=== PATIENT | female | born 1985 | race Caucasian/White ===

== ENCOUNTER 2020-02-15 17:34 | Emergency (ER) | payer MEDICAID ==
[2020-02-15 17:53] VITALS: BP 122/76
--- NOTE | 2020-02-15 19:39 | ED Physician Documentation ---
PD HPI BACK PAIN - Stated complaint Stated Complaint: BACK PX - Chief complaint Chief Complaint: Back Pain - History obtained from History obtained from: Patient - History of Present Illness Timing - onset: How many days ago (onset and worsening over past 2-3 days of left low back pain, unresponsive to low back ROM exercises, ice, and NSAIDs. Has had similar episodically in the past, without chronic pain. No noted mechanism for the pain onset.) Timing - duration: Days (2-3) Timing - details: Gradual onset, Waxing and waning Location: Lower, Left Quality: Pain, Aching Associated symptoms: No: Fever, Weakness, Numbness, Unable to urinate Improves with: Rest Worsened by: Movement, Twisting, Palpation Contributing factors: No: Lifting, Twisting, Trauma Similar symptoms before: Diagnosis (low back pain episodes in the past, with prior PT in the past. No chronic pain.) Review of Systems Constitutional: denies: Fever, Chills Nose: denies: Rhinorrhea / runny nose, Congestion Throat: denies: Sore throat Respiratory: denies: Cough GI: denies: Abdominal Pain, Nausea, Vomiting, Diarrhea : denies: Dysuria, Frequency Skin: denies: Rash, Lesions Neurologic: denies: Focal weakness, Numbness PD PAST MEDICAL HISTORY - Past Medical History Past Medical History: No - Past Surgical History Past Surgical History: Yes General: Cholecystectomy - Present Medications Home Medications: Ambulatory Orders Medication Instructions Recorded Confirmed Ibuprofen [Motrin] 600 mg PO TID PRN #25 tab 02/15/20 Oxycodone HCl/Acetaminophen 1 each PO Q6H PRN #14 tablet 02/15/20 [Percocet 5-325 mg Tablet] Tizanidine HCl 4 mg PO TID PRN #25 capsule 02/15/20 dexAMETHasone [Decadron] 4 mg PO DAILY #5 tablet 02/15/20 - Allergies Allergies/Adverse Reactions: Allergies Allergy/AdvReac Type Severity Reaction Status Date / Time acetaminophen [From Vicodin] Allergy Unknown Verified 02/15/20 19:32 hydrocodone [From Vicodin] Allergy Unknown Verified 02/15/20 19:32 - Social History Does the pt smoke?: No Smoking Status: Never smoker PD ED PE NORMAL - Vitals Vital signs reviewed: Yes - General General: Alert and oriented X 3, Well developed/nourished, Other (appears uncomfortable with the back pain. Sitting leaning forward to right to have pressure off the left. ) - Abdomen Abdomen: Soft, Non tender - Back Back: No CVA TTP, No spinal TTP (has tenderness left lumbar muscle focally and also some to the SI area. No rash nor sores. ) - Derm Derm: Normal color, Warm and dry - Extremities Extremities: No edema, No calf tenderness / cord - Neuro Neuro: Alert and oriented X 3, No motor deficit, No sensory deficit, Other (normal knee reflexes) Results - Vitals Vitals: Vital Signs - 24 hr 02/15/20 02/15/20 17:46 21:29 Temperature 36.2 C L Heart Rate 90 88 Respiratory 16 16 Rate Blood Pressure 122/76 O2 Saturation 97 99 Oxygen O2 Source Room air PD MEDICAL DECISION MAKING - ED course Complexity details: considered differential (low back pain without red flags. Locally tender at upper aspect left SI area. Has trigger point in muscles just above the SI. ), d/w patient Departure - Departure Disposition: 01 Home, Self Care Clinical Impression: Low back pain Qualifiers: Chronicity: acute Back pain laterality: left Sciatica presence: without sciatica Qualified Code(s): M54.5 - Low back pain Condition: Stable Record reviewed to determine appropriate education?: Yes Instructions: ED Low Back Pain Injury Follow-Up: Bonilla West MD [Primary Care Provider] - Prescriptions: dexAMETHasone [Decadron] 4 mg PO DAILY #5 tablet Ibuprofen [Motrin] 600 mg PO TID PRN #25 tab PRN Reason: Pain Oxycodone HCl/Acetaminophen [Percocet 5-325 mg Tablet] 1 each PO Q6H PRN #14 tablet PRN Reason: pain Tizanidine HCl 4 mg PO TID PRN #25 capsule PRN Reason: Spasms Comments: Heat and gentle stretching for the low back. Lookup sacroiliac strain exercises on the Internet and emphasize those type stretches more than low back per se. Anti-inflammatory of ibuprofen 3 times a day and add tizanidine muscle relaxant and Tylenol for pain. Add oxycodone if needed for worse pain in the short-term. Also Decadron steroid anti-inflammatory daily for 5 more days. Recheck if not improved well over the next few days and return if worsening. Discharge Date/Time: 02/15/20 21:29
[2020-02-15] MEDS ORDERED: IBUPROFEN 800 MG TABLET PO STA (20:10)
[2020-02-15] MEDS ORDERED: methocarbamoL 500 MG TABLET PO STA (20:10)
[2020-02-15] MEDS ORDERED: TRIAMCINOLONE 40 MG/ML VIAL IM STA (20:10)
[2020-02-15] MEDS ORDERED: oxyCODONE 5 MG TABLET PO STA (20:12)
[2020-02-15] MEDS ORDERED: oxyCODONE/ACET 5/325 Prepack 4 PO STA (21:02)
== END 2020-02-15 21:29 | disposition home or self-care (01) ==
LOC: ED 17:34
DX: M54.5 Low back pain (principal)
CPT/HCPCS: 20552; 99283; 99284; A9270; 96372

== ENCOUNTER 2020-07-29 12:25 | Emergency (ER) | payer MEDICAID ==
[2020-07-29 12:37] VITALS: BP 130/71
== END 2020-07-29 13:44 | disposition left against medical advice (07) ==
LOC: ED 12:25
DX: Z53.21 Procedure and treatment not carried out due to patient leaving prior to being seen by health care provider (principal)

== ENCOUNTER 2020-10-15 13:12 | Emergency (ER) | payer MEDICAID ==
[2020-10-15] MEDS ORDERED: CYCLOBENZAPRINE 10 MG TABLET PO STA (13:29)
--- NOTE | 2020-10-15 13:30 | ED Physician Documentation ---
PD HPI BACK PAIN - Stated complaint Stated Complaint: GLF - BACK PX - Chief complaint Chief Complaint: Back Pain - History obtained from History obtained from: Patient - Additional information Additional information: 35-year-old woman with history of sciatica was coming down her steps and slipped and fell at an angle hitting her back and felt a pop in the back and now has pain and numbness radiating down the left side. Previous radicular/sciatic issues were in the right leg though. No fevers or chills. No saddle anesthesia or incontinence. No possibility of . Review of Systems Constitutional: reports: Reviewed and negative Eyes: reports: Reviewed and negative Ears: reports: Reviewed and negative Nose: reports: Reviewed and negative Throat: reports: Reviewed and negative Cardiac: reports: Reviewed and negative PD PAST MEDICAL HISTORY - Past Medical History Past Medical History: No - Past Surgical History Past Surgical History: Yes General: Cholecystectomy - Present Medications Home Medications: Ambulatory Orders Medication Instructions Recorded Confirmed Cyclobenzaprine [Flexeril] 10 mg PO TID PRN #20 tablet 10/15/20 Venlafaxine HCl [Effexor Xr] 1 tab PO DAILY 10/15/20 10/15/20 lamoTRIgine [Lamictal Xr] 1 tab PO DAILY 10/15/20 10/15/20 predniSONE [Deltasone] 20 mg PO [id number] #21 tab 10/15/20 - Allergies Allergies/Adverse Reactions: Allergies Allergy/AdvReac Type Severity Reaction Status Date / Time acetaminophen [From Vicodin] Allergy Unknown Verified 10/15/20 13:19 hydrocodone [From Vicodin] Allergy Unknown Verified 10/15/20 13:19 - Social History Does the pt smoke?: No Smoking Status: Never smoker Does the pt drink ETOH?: No Does the pt have substance abuse?: No - Immunizations Immunizations are current?: Yes - POLST Patient has POLST: No PD ED PE NORMAL - Vitals Vital signs reviewed: Yes - General General: Alert and oriented X 3, No acute distress - Extremities Extremities: Other (She is some tenderness to the left of the lower lumbar spine. No midline spinal tenderness. Mild numbness in a left L4-L5 d istribution. Diminished left patellar reflex compared to the right. Normal strength throughout the lower extremities.) - Neuro Neuro: Alert and oriented X 3, Normal speech Results - Vitals Vitals: Vital Signs - 24 hr 10/15/20 13:14 Temperature 36.4 C L Heart Rate 122 H Respiratory 18 Rate Blood Pressure 125/58 L O2 Saturation 99 Oxygen O2 Source Room air - Rads (name of study) L spine XR Radiology: EMP read contemporaneously (NAD) Departure - Departure Disposition: Home, Self Care Clinical Impression: Sciatica Qualifiers: Laterality: left Qualified Code(s): M54.32 - Sciatica, left side Condition: Good Record reviewed to determine appropriate education?: Yes Instructions: ED Sciatica Prescriptions: predniSONE [Deltasone] 20 mg PO [id number] #21 tab Cyclobenzaprine [Flexeril] 10 mg PO TID PRN #20 tablet PRN Reason: Spasms Comments: I know in the past physical therapy has not helped, but you should still talk with your doctor about it. Return for new or worsening symptoms. If symptoms are persistent over weeks to months also talk with your doctor about an MRI.
--- NOTE | 2020-10-15 14:13 | XRAY Report ---
PROCEDURE: Lumbar Spine 2 View INDICATIONS: back injury TECHNIQUE: 2 views of the lumbar spine were acquired. COMPARISON: None. FINDINGS: Bones: 5 [id number]-inc-malsnmn vertebrae are present. There may be a minimal scoliosis. No vertebral body compression fractures. No suspicious bony lesions. Soft tissues: Overlying bowel gas pattern is normal. No suspicious soft tissue calcifications. Chol ecystectomy clips. IMPRESSION: No significant osseous abnormality. Reviewed by: Guy Escalona MD on 10/15/2020 2:12 PM [facility] Approved by: Guy Escalona MD on 10/15/2020 2:12 PM [facility] Station ID: [id number]
[2020-10-15 14:26] VITALS: BP 120/60
== END 2020-10-15 14:25 | disposition home or self-care (01) ==
LOC: ED 13:12
DX: M54.42 Lumbago with sciatica, left side (principal); W10.8XXA Fall (on) (from) other stairs and steps, initial encounter; Y93.01 Activity, walking, marching and hiking
CPT/HCPCS: 72100; 99283; A9270

== ENCOUNTER 2021-03-09 16:46 | Emergency (ER) | payer MEDICAID ==
--- OUTSIDE RECORDS SUMMARY | 2021-03-09 17:24 | EXTERNAL MEDICAL SUMMARY RPT | Continuity of Care Document ---
:1985 Demographics Phone Unavailable Preferred Language Unknown Marital Status Unknown Hindu Affiliation Unknown Race Unknown Ethnic Group Unknown Author Organization [facility] Address [address] [place] [address] Phone Allergies Encounters Medications Problems Results
[2021-03-09] MEDS ORDERED: diazePAM 5 MG TABLET PO STA (18:39)
[2021-03-09] MEDS ORDERED: HYDROmorphone 1 MG/ML CARPUJECT IVP STA (18:39)
[2021-03-09] MEDS ORDERED: HYDROmorphone 1 MG/ML CARPUJECT IM STA (18:40)
--- NOTE | 2021-03-09 18:48 | ED Physician Documentation ---
History of Present Illness - Stated complaint Stated Complaint: BACK PAIN - Chief complaint Chief Complaint: Back Pain - Additonal information Additional information: 35-year-old female comes to the emergency department with acute flare of her back pain that she has had multiple times in the past. She reports that yesterday she was twisting to move something on the table and she felt a pop in her back. She felt immediate tension tightness and spasm in the left back that radiates down the left leg. She tried taking ibuprofen which helped a little bit but as the last 24 hours has progressed the pain is gotten increasingly worse. She is now unable to find any positions of comfort and moving is becoming increasingly difficult. No saddle anesthesia no loss of bowel or bladder function. No fevers. No history of intravenous drug use or epidural abscess. Review of Systems Constitutional: denies: Fever, Chills Eyes: reports: Reviewed and negative Ears: reports: Reviewed and negative Nose: reports: Reviewed and negative Throat: reports: Reviewed and negative Cardiac: reports: Reviewed and negative Respiratory: reports: Reviewed and negative : denies: Dysuria, Frequency, Hesitancy Skin: reports: Reviewed and negative Musculoskeletal: reports: Back pain PD PAST MEDICAL HISTORY - Past Medical History Past Medical History: Yes - Past Surgical History Past Surgical History: Yes General: Cholecystectomy - Present Medications Home Medications: Ambulatory Orders Medication Instructions Recorded Confirmed Venlafaxine HCl [Effexor Xr] 1 tab PO DAILY 10/15/20 03/09/21 lamoTRIgine [Lamictal Xr] 1 tab PO DAILY 10/15/20 03/09/21 ARIPiprazole [Abilify Mycite] 15 mg PO DAILY PM 03/09/21 03/09/21 methocarbamoL [Methocarbamol] 750 mg PO BID PRN #20 tablet 03/09/21 oxyCODONE/ACET 5/325 [Percocet 5 1 each PO BID PRN #10 tablet 03/09/21 mg/325 mg] - Allergies Allergies/Adverse Reactions: Allergies Allergy/AdvReac Type Severity Reaction Status Date / Time acetaminophen [From Vicodin] Allergy Unknown Verified 03/09/21 17:03 hydrocodone [From Vicodin] Allergy Unknown Verified 03/09/21 17:03 - Social History Does the pt smoke?: No Smoking Status: Never smoker Does the pt drink ETOH?: No Does the pt have substance abuse?: No - Immunizations Immunizations are current?: Yes - POLST Patient has POLST: No PD ED PE EXPANDED - General General: Alert, In Pain - Cardiac Cardiac: Regular Rate, Radial strong equal, Cap refill < 2 sec - Respiratory Respiratory: Clear to ausultation juanito. No: Distress, Labored - Abdomen Abdomen: Normal Bowel sounds. No: Tender to palpation - Back Back: Soft tissue tenderness (No midline spinous process tenderness. There is pain with palpation of the left lower lumbar muscles. Palpable spasm is appreciated. Motor strength is 5 of 5 but standing and walking limited secondary to pain and low back.). No: Vertebral tenderness Results - Vitals Vitals: Vital Signs - 24 hr 03/09/21 16:59 Temperature 36.4 C L Heart Rate 122 H Respiratory 15 Rate Blood Pressure 118/72 O2 Saturation 97 Oxygen O2 Source Room air PD MEDICAL DECISION MAKING - ED course Complexity details: reviewed results, re-evaluated patient, d/w patient ED course: 35-year-old female presents emergency department for evaluation of acute on chronic flare of her back pain. She reports twisting yesterday and feeling a pop in her left lower back and has had pain and persistent spasm which was palpated by myself since then. Initially she was very uncomfortable and could not stand for the exam however after she was given 1 mg of Dilaudid and 5 Valium orally she was able to stand and was moving much more freely. She has no red flags on exam. I feel that she would do well with a short course of muscle recent laxer as well as very limited number of Percocet for severe pain only. Recommended close follow-up with primary care provider as well as physical therapy I am prescribing a short course of short-acting opioid pain medication for this patient. 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 I have discussed that the opioids are for short term therapy only, and will not be refilled from the ED. Departure - Departure Disposition: 01 Home, Self Care Clinical Impression: Left low back pain Qualifiers: Chronicity: acute Sciatica presence: without sciatica Qualified Code(s): M54.5 - Low back pain Condition: Stable Record reviewed to determine appropriate education?: Yes Instructions: ED Spasm Back No Trauma Follow-Up: Bonilla Monteiro MD [Primary Care Provider] - Prescriptions: methocarbamoL [Methocarbamol] 750 mg PO BID PRN #20 tablet PRN Reason: Spasms oxyCODONE/ACET 5/325 [Percocet 5 mg/325 mg] 1 each PO BID PRN #10 tablet PRN Reason: Pain Comments: Joan I hope that your back continues to feel better. As pain is improving it is important to continue to move. I do recommend that you take ibuprofen 600 mg with food 3 times a day for the next 4 to 5 days. I prescribed methocarbamol which is a muscle relaxer that should help with the spasm. I have also prescribed a very limited amount of Percocet for severe pain only I am prescribing a short course of narcotic pain medication for you. These are potentially dangerous and addictive medications that should be used carefully. These medications may constipate you. Take an fupe-ebj-giguvem stool softener (docusate) twice daily with plenty of water while taking these medications. If you go 24 hours without a bowel movement, take [id number] miralax, per package instructions. Do not drink or drive while taking these medications. If you received narcotic or sedating medications while in the emergency department, do not drive for 24 hours. Store this medication in a safe, secure place and out of reach of children. It is a violation of federal law to give or sell this medication to another person or to use in a manner other than prescribed. The ED will not refill narcotic prescriptions, including prescriptions lost or stolen. To dispose of unwanted medications: 1. [facility] at [address] [place] [address] in [place] has a medication drop box. They accept prescription medications (in pill form) Thursday through Thursday 9:00 a.m. to 5:00 p.m. 2. The [facility] accepts prescription medications (in pill form only) for disposal year round. Call for more information. 3. Contact the [facility] for the next [facility] sponsored prescription drug collection event. , [phone], or [phone]; Note that many narcotic pain relievers also contain Tylenol/acetaminophen. Please ensure that your total dose of acetaminophen from all sources does not exceed 3 g (3000 mg) per day. Return to the emergency department if you are unable to have bowel movements or control the flow of your urine, you develop any fevers have suddenly severe or different symptoms
[2021-03-09 19:35] VITALS: BP 113/78
== END 2021-03-09 19:35 | disposition home or self-care (01) ==
LOC: ED 16:46
DX: M54.5 Low back pain (principal); G89.29 Other chronic pain; M62.830 Muscle spasm of back; M79.605 Pain in left leg; X50.1XXA Overexertion from prolonged static or awkward postures, initial encounter
CPT/HCPCS: 96372; 99283; 99284; A9270; J1170

== ENCOUNTER 2021-04-16 00:59 | Emergency (ER) | payer MEDICAID ==
--- NOTE | 2021-04-16 01:10 | ED Physician Documentation ---
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 She is UTD on immunizations. She had COVID 2 months ago (tested positive) and had completely recovered. She has been taking her temperature at home and, despite chills/sweats, she has not had a fever. Review of Systems Constitutional: reports: Chills, Myalgias, Fatigue, Sweats. denies: Fever Eyes: reports: Reviewed and negative Ears: reports: Reviewed and negative Nose: reports: Reviewed and negative Throat: reports: Reviewed and negative Cardiac: reports: Reviewed and negative Respiratory: reports: Cough (mild, CERTIFIED PEST CONTROL TECHNICIAN). denies: Dyspnea GI: reports: Nausea. denies: Abdominal Pain, Vomiting, Diarrhea : denies: Dysuria, Frequency, Now EGA Skin: denies: Rash Musculoskeletal: reports: Reviewed and negative Neurologic: reports: Headache. denies: Generalized weakness, Focal weakness, Numbness PD PAST MEDICAL HISTORY - Past Medical History Past Medical History: No - Past Surgical History Past Surgical History: Yes General: Cholecystectomy - Present Medications Home Medications: Ambulatory Orders Medication Instructions Recorded Confirmed No Known Home Medications 04/16/21 04/16/21 - Allergies Allergies/Adverse Reactions: Allergies Allergy/AdvReac Type Severity Reaction Status Date / Time No Known Drug Allergies Allergy Verified 04/16/21 01:42 - Living Situation Living Arrangement: reports: At home - Social History Does the pt smoke?: No Smoking Status: Never smoker Does the pt drink ETOH?: No Does the pt have substance abuse?: No - Immunizations Immunizations are current?: Yes - POLST Patient has POLST: No PD ED PE NORMAL - Vitals Vital signs reviewed: Yes - General General: Alert and oriented X 3, No acute distress, Well developed/nourished - HEENT HEENT: Moist mucous membranes, Pharynx benign - Neck Neck: Supple, no meningeal sign - Cardiac Cardiac: RRR, No murmur - Respiratory Respiratory: No respiratory distress, Clear bilaterally - Abdomen Abdomen: Normal bowel sounds, Soft, Non tender, Non distended - Derm Derm: Normal color, Warm and dry - Neuro Neuro: Alert and oriented X 3 Results - Vitals Vitals: Vital Signs - 24 hr 04/16/21 04/16/21 04/16/21 01:10 01:15 03:03 Temperature 36.9 C 36.9 C 36.9 C Heart Rate 106 H 106 H 84 Respiratory 18 18 16 Rate Blood Pressure 126/80 126/80 114/75 O2 Saturation 98 98 99 Oxygen O2 Source Room air - Labs Labs: Laboratory Tests 04/16/21 04/16/21 04/16/21 01:30 01:35 01:35 WBC 15.9 H RBC 4.45 Hgb 12.4 Hct 38.1 MCV 85.6 MCH 27.9 MCHC 32.5 RDW 13.1 Plt Count 326 MPV 8.9 Neut # (Auto) 12.6 H Lymph # (Auto) 1.7 [place] # (Auto) 1.3 H Eos # (Auto) 0.2 Baso # (Auto) 0.1 Absolute Nucleated RBC 0.00 Nucleated RBC % 0.0 Sodium 135 Potassium 3.7 Chloride 102 Carbon Dioxide 24 Anion Gap 9.0 BUN 6 Creatinine 0.5 Estimated GFR (MDRD) 139 Glucose 141 H Calcium 8.9 Total Bilirubin 0.8 AST 45 H ALT 52 Alkaline Phosphatase 70 Total Protein 7.6 Albumin 4.3 Globulin 3.3 Albumin/Globulin Ratio 1.3 Lipase 33 Influenza A (Rapid) Negative Influenza B (Rapid) Negative PD MEDICAL DECISION MAKING - ED course Complexity details: reviewed results, re-evaluated patient, considered differential, d/w patient ED course: Patients symptoms are s/o viral syndrome. She has already had COVID and recovered completely from symptoms 2 months ago. She has no focal source of infection on HPI/ROS/PE; specifically, no c/o nor findings to suggest infection of ear(s), throat, sinuses, lungs (mild nonproductive cough but normal pulse ox and lungs are CTA bilaterally), abdomen, or urine (UTI). She is well appearing and has no meningismus. Leukocytosis noted although expected based on description of symptoms. The elevated WBC is not alarming and there are no other significant abnormalities on blood tests. Results reviewed with patient and she is comfortable with d/c home. Flu swab performed and this resulted negative. Departure - Departure Disposition: Home, Self Care Clinical Impression: Viral syndrome Condition: Good Instructions: ED Viral Syndrome Follow-Up: Bonilla Monteiro MD [Primary Care Provider] - Discharge Date/Time: 04/16/21 02:50
[2021-04-16] MEDS ORDERED: ONDANSETRON 4 MG/2 ML VIAL IVP STA (01:27)
[2021-04-16] MEDS ORDERED: KETOROLAC 30 MG/ML VIAL IVP STA (01:27)
[2021-04-16] MEDS ORDERED: SODIUM CHLORIDE 0.9% 1,000 ML IV STA (01:27)
[2021-04-16 01:42] LABS: BASOPHILS # (AUTO) 0.1 10^3/uL (0.0-0.1); BASOPHILS % (AUTO) 0.6 %; EOSINOPHILS # (AUTO) 0.2 10^3/uL (0.0-0.7); EOSINOPHILS % (AUTO) 0.9 %; HCT - HEMATOCRIT 38.1 % (37.0-47.0); HGB - HEMOGLOBIN 12.4 g/dL (12.0-16.0); LYMPHOCYTES # (AUTO) 1.7 10^3/uL (1.5-3.5); LYMPHOCYTES % (AUTO) 10.8 %; MEAN CORPUSCULAR HEMOGLOBIN 27.9 pg (27.0-31.0); MEAN CORPUSCULAR HGB CONC 32.5 g/dL (32.0-36.0); MEAN CORPUSCULAR VOLUME 85.6 fL (81.0-99.0); MEAN PLATELET VOLUME 8.9 fL (7.9-10.8); MONOCYTES # (AUTO) 1.3 10^3/uL (0.0-1.0); NEUTROPHILS # (AUTO) 12.6 10^3/uL (1.5-6.6); NEUTROPHILS % (AUTO) 79.2 %; PLT - PLATELET COUNT 326 10^3/uL (130-450); RED BLOOD COUNT 4.45 10^6/uL (4.20-5.40); RED CELL DISTRIBUTION WIDTH 13.1 % (12.0-15.0); WHITE BLOOD COUNT 15.9 x10^3/uL (4.8-10.8)
[2021-04-16 01:55] LABS: ALBUMIN 4.3 g/dL (3.2-5.5); ALBUMIN/GLOBULIN RATIO 1.3 (1.0-2.2); BILIRUBIN,TOTAL 0.8 mg/dL (0.2-1.0); CALCIUM 8.9 mg/dL (8.5-10.3); CREATININE 0.5 mg/dL (0.4-1.0); POTASSIUM 3.7 mmol/L (3.5-5.0); TOTAL PROTEIN 7.6 g/dL (6.7-8.2)
[2021-04-16 03:04] VITALS: BP 114/75
== END 2021-04-16 02:50 | disposition home or self-care (01) ==
LOC: ED 00:59
DX: B34.9 Viral infection, unspecified (principal)
CPT/HCPCS: 36415; 80053; 83690; 85025; 87275; 87276; 96374; 96375; 99284

== ENCOUNTER 2021-04-17 03:54 | Emergency (ER) | payer MEDICAID ==
[2021-04-17] MEDS ORDERED: ACETAMINOPHEN 325 MG TABLET PO STA (05:49)
[2021-04-17] MEDS ORDERED: SODIUM CHLORIDE 0.9% 1,000 ML IV STA (05:49)
[2021-04-17] MEDS ORDERED: METOCLOPRAMIDE 10 MG/2 ML VIAL IVP STA (05:59)
[2021-04-17] MEDS ORDERED: diphenhydrAMINE INJ 50 MG/ML VIAL IVP STA (05:59)
[2021-04-17] MEDS ORDERED: KETOROLAC 15 MG/ML VIAL IM STA (05:59)
--- NOTE | 2021-04-17 06:01 | ED Physician Documentation ---
History of Present Illness - Stated complaint Stated Complaint: FAINTING, ABD PX, HEADACHE, CHILLS, BODY ACHE - Chief complaint Chief Complaint: Abd Pain - History obtained from History obtained from: Patient - Additonal information Additional information: 35-year-old woman with past medical history of COVID-19. 2 months ago presents with viral syndrome over the past couple of days. She was seen here yesterday with the same symptoms but they have not resolved in the morning and worse. She states that she has bilateral frontal throbbing headache keeping her from sleep as well as body aches, racking cough that makes the headache worse, diffuse abdominal pain, multiple loose stools but no blood in it. Also endorsing suprapubic pain and concern that she has a uti. denies fevers but does have chills. Review of Systems Ten Systems: 10 systems reviewed and negative Constitutional: reports: Chills, Myalgias, Fatigue Nose: denies: Rhinorrhea / runny nose Throat: denies: Sore throat Respiratory: reports: Cough. denies: Dyspnea GI: reports: Abdominal Pain, Nausea, Diarrhea. denies: Vomiting : denies: Unable to Void Musculoskeletal: reports: Back pain Neurologic: reports: Generalized weakness PD PAST MEDICAL HISTORY - Past Surgical History Past Surgical History: Yes General: Cholecystectomy - Present Medications Home Medications: Ambulatory Orders Medication Instructions Recorded Confirmed Ketorolac [Toradol] 10 mg PO Q6H PRN #30 tablet 04/17/21 Metoclopramide [Reglan] 10 mg PO Q6H PRN #15 tablet 04/17/21 - Allergies Allergies/Adverse Reactions: Allergies Allergy/AdvReac Type Severity Reaction Status Date / Time No Known Drug Allergies Allergy Verified 04/17/21 04:05 - Social History Does the pt smoke?: No Smoking Status: Never smoker Does the pt drink ETOH?: No Does the pt have substance abuse?: No - Immunizations Immunizations are current?: Yes - POLST Patient has POLST: No PD ED PE NORMAL - Vitals Vital signs reviewed: Yes - General General: Alert and oriented X 3, No acute distress, Well developed/nourished - HEENT HEENT: Atraumatic, PERRL, EOMI - Neck Neck: Supple, no meningeal sign - Cardiac Cardiac: Other (Borderline tachycardic rate, regular rhythm) - Respiratory Respiratory: No respiratory distress, Clear bilaterally - Abdomen Abdomen: Non tender, Non distended - Back Back: Other (Bilateral CVA discomfort with palpation) - Derm Derm: Normal color - Extremities Extremities: No deformity - Neuro Neuro: Alert and oriented X 3, shut off worker 2-12 intact, No motor deficit, No sensory deficit, Normal speech - Psych Psych: Normal mood, Normal affect Results - Vitals Vitals: Vital Signs - 24 hr 04/17/21 04/17/21 04:01 07:16 Temperature 36.9 C Heart Rate 114 H Heart Rate [ 77 Sitting] Heart Rate [ 108 H Standing] Heart Rate [ 76 Supine] Respiratory 15 Rate Blood Pressure 136/88 H Blood Pressure 112/68 [Sitting] Blood Pressure 122/76 [Standing] Blood Pressure 100/67 [Supine] O2 Saturation 99 Oxygen O2 Source Room air - Labs Labs: Laboratory Tests 04/17/21 06:20 Urine Color YELLOW Urine Clarity CLEAR Urine pH 7.0 Ur Specific [place] 1.020 Urine Protein NEGATIVE Urine Glucose (UA) NEGATIVE Urine Ketones 15 H Urine Occult Blood NEGATIVE Urine Nitrite NEGATIVE Urine Bilirubin NEGATIVE Urine Urobilinogen 0.2 (NORMAL) Ur Leukocyte Esterase NEGATIVE Urine RBC 0-5 Urine WBC 0-3 Ur Epithelial Cells FEW Transitional Ur Squamous Epith Cells FEW Squamous Urine Bacteria Rare Urine Mucus Few Strands Urine Culture Comments NOT INDICATED PD MEDICAL DECISION MAKING - ED course ED course: 35-year-old woman presents with acute viral syndrome concerning for possible reinfection with COVID-19. Will reswab today And treat symptoms then reevaluate. 7:30am- patient feeling significantly better with reduction in BERNARD, body aches, and nausea with meds. will let her finish fluids then dc with return precautions. education given about symptom management. plan to f/u with pmd. Departure - Departure Disposition: 01 Home, Self Care Clinical Impression: Nausea, Myalgia, Cough, Headache Condition: Good Instructions: ED Viral Syndrome Prescriptions: Metoclopramide [Reglan] 10 mg PO Q6H PRN #15 tablet PRN Reason: Nausea / Vomiting Ketorolac [Toradol] 10 mg PO Q6H PRN #30 tablet PRN Reason: Pain Comments: You are seen in the emergency department for body aches, headache, cough, and nausea. Your Covid test is pending and you should stay home until then and quarantine. Return to the emergency department if you have any new or worsening symptoms or other concerns. Follow-up with your primary doctor. Forms: Activity restrictions
[2021-04-17 06:59] LABS: BILIRUBIN,URINE NEGATIVE (NEGATIVE); GLUCOSE, URINE (UA) NEGATIVE (NEGATIVE); KETONES,URINE (UA) 15 mg/dL (NEGATIVE); LEUKOCYTE ESTERASE, URINE NEGATIVE (NEGATIVE); NITRITE,URINE NEGATIVE (NEGATIVE); OCCULT BLOOD,URINE NEGATIVE (NEGATIVE); PROTEIN,URINE NEGATIVE (NEGATIVE); UROBILINOGEN,URINE 0.2 (NORMAL) E.U./dL (NORMAL)
[2021-04-17 07:09] LABS: CLARITY,URINE CLEAR (CLEAR)
[2021-04-17] MEDS ORDERED: HYDROmorphone 1 MG/ML CARPUJECT IVP STA (07:16)
[2021-04-17 07:18] VITALS: BP 100/67
[2021-04-17 07:28] LABS: BACTERIA,URINE Rare /HPF (None Seen); EPITHELIAL CELLS,UR FEW Transitional /HPF (<= Few); MUCUS,URINE Few Strands; RBC,URINE 0-5 /HPF (0-5); SQUAMOUS EPITHELIAL CELL,UR FEW Squamous (<= Few); WBC,URINE 0-3 /HPF (0-5)
== END 2021-04-17 07:57 | disposition home or self-care (01) ==
LOC: ED 03:54
DX: R51.9 Headache, unspecified (principal); R05 Cough; R11.0 Nausea; M79.10 Myalgia, unspecified site; Z86.16 Personal history of COVID-19
CPT/HCPCS: 36415; 81001; 87635; 93005; 96372; 96374; 96375; 99283; 99284; A9270; J1170; J1200; J2765; 87086

== ENCOUNTER 2021-04-19 16:32 | Inpatient (IN) | payer MEDICAID ==
[2021-04-19] MEDS ORDERED: SODIUM CHLORIDE 0.9% 1,000 ML IV STA (16:58)
[2021-04-19] MEDS ORDERED: PROCHLORPERAZINE 10 MG/2 ML VIAL IVP STA (16:58)
[2021-04-19 17:03] LABS: BASOPHILS # (AUTO) 0.1 10^3/uL (0.0-0.1); BASOPHILS % (AUTO) 0.5 %; EOSINOPHILS # (AUTO) 0.1 10^3/uL (0.0-0.7); EOSINOPHILS % (AUTO) 0.8 %; HCT - HEMATOCRIT 37.3 % (37.0-47.0); HGB - HEMOGLOBIN 12.8 g/dL (12.0-16.0); LYMPHOCYTES # (AUTO) 1.4 10^3/uL (1.5-3.5); LYMPHOCYTES % (AUTO) 11.4 %; MEAN CORPUSCULAR HEMOGLOBIN 28.3 pg (27.0-31.0); MEAN CORPUSCULAR HGB CONC 34.3 g/dL (32.0-36.0); MEAN CORPUSCULAR VOLUME 82.5 fL (81.0-99.0); MEAN PLATELET VOLUME 8.7 fL (7.9-10.8); MONOCYTES # (AUTO) 0.9 10^3/uL (0.0-1.0); MONOCYTES % (AUTO) 7.7 %; NEUTROPHILS # (AUTO) 9.4 10^3/uL (1.5-6.6); NEUTROPHILS % (AUTO) 79.1 %; PLT - PLATELET COUNT 376 10^3/uL (130-450); RED BLOOD COUNT 4.52 10^6/uL (4.20-5.40); RED CELL DISTRIBUTION WIDTH 12.7 % (12.0-15.0); WHITE BLOOD COUNT 11.9 x10^3/uL (4.8-10.8)
[2021-04-19 17:19] LABS: ALBUMIN 4.1 g/dL (3.2-5.5); ALBUMIN/GLOBULIN RATIO 1.1 (1.0-2.2); BILIRUBIN,TOTAL 0.9 mg/dL (0.2-1.0); CALCIUM 8.9 mg/dL (8.5-10.3); CREATININE 0.6 mg/dL (0.4-1.0); POTASSIUM 3.1 mmol/L (3.5-5.0); TOTAL PROTEIN 7.7 g/dL (6.7-8.2)
--- NOTE | 2021-04-19 17:30 | ED Physician Documentation ---
History of Present Illness - Stated complaint Stated Complaint: BERNARD,BLURRED VISION,CP - Chief complaint Chief Complaint: Neuro - Additonal information Additional information: 35-year-old female presents to the emergency department for a headache that began 6 days ago and has proceeded unabated. This is now her fourth ED visit for similar. It was initially with subjective fevers and chills. She has had some nausea and vomiting. No diarrhea dysuria urgency. No abdominal pain. She denies any history of headaches but as the headache is worse and she now endorses some photophobia as well as noise sensitivity. Last seen in this ER on the . She was seen at [facility] yesterday with what she remarks were normal labs and a normal head CT. She states that when she is in the emergency department the medicines that she had given make her headache better but when she leaves it returns. there have been no falls or trauma. She has no rash. No recent travel. She does have a history of COVID-19 infection about 2 months ago. She feels that she had fully recovered from that. Not yet vaccinated. Though her recent COVID-19 screen was negative. Review of Systems Constitutional: reports: Fever, Chills, Myalgias, Fatigue Eyes: reports: Photophobia. denies: Loss of vision Ears: denies: Loss of hearing (Noise sensitivity) Nose: reports: Reviewed and negative Throat: reports: Reviewed and negative Cardiac: reports: Reviewed and negative Respiratory: reports: Reviewed and negative GI: reports: Nausea, Vomiting : reports: Reviewed and negative Skin: denies: Rash, Lesions Musculoskeletal: reports: Neck pain Neurologic: reports: Headache. denies: Generalized weakness, Focal weakness, Numbness, Syncope, Seizure Psychiatric: reports: Reviewed and negative PD PAST MEDICAL HISTORY - Past Medical History Cardiovascular: None Respiratory: None Neuro: Headaches, Migraines Endocrine/Autoimmune: None GI: None MACHINE PACKAGING TECHNICIAN: None : None HEENT: None Psych: None Musculoskeletal: None Derm: None - Past Surgical History Past Surgical History: Yes General: Cholecystectomy - Present Medications Home Medications: Ambulatory Orders Medication Instructions Recorded Confirmed Ketorolac [Toradol] 10 mg PO Q6H PRN #30 tablet 04/17/21 04/19/21 Metoclopramide [Reglan] 10 mg PO Q6H PRN #15 tablet 04/17/21 04/19/21 HYDROcod/ACETAM 5/325 [[place] 5/325] 1 tab PO DAILY 04/19/21 04/19/21 Venlafaxine ER [Effexor ER] 1 tab PO DAILY 04/19/21 04/19/21 - Allergies Allergies/Adverse Reactions: Allergies Allergy/AdvReac Type Severity Reaction Status Date / Time No Known Drug Allergies Allergy Verified 04/19/21 16:42 - Social History Does the pt smoke?: No Smoking Status: Never smoker Does the pt drink ETOH?: No Does the pt have substance abuse?: No - Immunizations Immunizations are current?: Yes - POLST Patient has POLST: No PD ED PE EXPANDED - General General: Alert, No acute distress - HEENT HEENT: Atraumatic, PERRL - Neck Neck: Supple w/out meningeal sx. No: Brudzinki's, Kernig's, Adenopathy - Cardiac Cardiac: Regular Rate, Murmur Present, Radial strong equal, Pedal strong equal. No: Regular Rhythm - Respiratory Respiratory: Clear to ausultation juanito. No: Distress, Labored - Abdomen Abdomen: Normal Bowel sounds, Tender to palpation - Derm Derm: Normal color, Warm and dry - Extremities Extremities: Normal, Deformity - Neuro Neuro: Alert and Oriented X 3, CNII-XII intact, Cerebellar nl, Normal finger nose, Normal speech. No: Nystagmus - GCS Eye Opening: Spontaneous Motor: Obeys Commands Verbal: Oriented Total: 15 Results - Vitals Vitals: Vital Signs - 24 hr 04/19/21 04/19/21 04/19/21 16:42 17:32 17:46 Temperature 36.8 C 39.2 C H Heart Rate 89 101 H Respiratory 18 15 Rate Blood Pressure 128/70 124/81 H O2 Saturation 100 97 04/19/21 04/19/21 04/19/21 18:03 19:30 20:00 Temperature 38.3 C H Heart Rate 96 92 90 Respiratory 20 15 17 Rate Blood Pressure 116/80 102/67 108/62 O2 Saturation 96 97 97 04/19/21 20:30 Temperature Heart Rate 95 Respiratory 16 Rate Blood Pressure 114/81 H O2 Saturation 96 Oxygen O2 Source Room air - EKG (time done) 1644 Rate: Rate (enter#) (101) Rhythm: NSR [place]: Normal Intervals: Normal AR QRS: Low voltage Ischemia: Normal ST segments Compare to prior EKG: Old EKG unavailable Computer interpretation: Agree with computer - Labs Labs: Laboratory Tests 04/19/21 04/19/21 04/19/21 16:50 16:50 16:50 WBC 11.9 H RBC 4.52 Hgb 12.8 Hct 37.3 MCV 82.5 MCH 28.3 MCHC 34.3 RDW 12.7 Plt Count 376 MPV 8.7 Neut # (Auto) 9.4 H Lymph # (Auto) 1.4 L [place] # (Auto) 0.9 Eos # (Auto) 0.1 Baso # (Auto) 0.1 Absolute Nucleated RBC 0.00 Nucleated RBC % 0.0 PT INR Sodium 129 L Potassium 3.1 L Chloride 93 L Carbon Dioxide 21 Anion Gap 15.0 H BUN 13 Creatinine 0.6 Estimated GFR (MDRD) 112 Glucose 121 H Calcium 8.9 Magnesium Total Bilirubin 0.9 AST 44 H ALT 47 Alkaline Phosphatase 68 Troponin I High Sens 2.7 Total Protein 7.7 Albumin 4.1 Globulin 3.6 Albumin/Globulin Ratio 1.1 Lipase 31 HCG, Quant Urine Color Urine Clarity Urine pH Ur Specific [place] Urine Protein Urine Glucose (UA) Urine Ketones Urine Occult Blood Urine Nitrite Urine Bilirubin Urine Urobilinogen Ur Leukocyte Esterase Ur Microscopic Review Urine Culture Comments CSF Color CSF Clarity Xanthrochromic CSF WBC CSF RBC CSF Cell Count Tube # CSF Neutrophils CSF Lymphocytes CSF Monocytes CSF Glucose CSF Total Protein Nasal Adenovirus (PCR) Nasal B. parapertussis DNA (PCR) Nasal Coronavir 229E PCR Nasal Coronavir HKU1 PCR Nasal Coronavir NL63 PCR Nasal Coronavir OC43 PCR Nasal Enterovir/Rhinovir PCR Nasal Influenza B PCR Nasal Influenza A PCR Nasal Parainfluen 1 PCR Nasal Parainfluen 2 PCR Nasal Parainfluen 3 PCR Nasal Parainfluen 4 PCR Nasal RSV (PCR) Nasal B.pertussis DNA PCR Nasal C.pneumoniae (PCR) Chase Human Metapneumo PCR Nasal M.pneumoniae (PCR) Nasal SARS-CoV-2 (PCR) 04/19/21 04/19/21 04/19/21 16:50 16:50 17:36 WBC RBC Hgb Hct MCV MCH MCHC RDW Plt Count MPV Neut # (Auto) Lymph # (Auto) Hopkins # (Auto) Eos # (Auto) Baso # (Auto) Absolute Nucleated RBC Nucleated RBC % PT 15.1 H INR 1.4 H Sodium Potassium Chloride Carbon Dioxide Anion Gap BUN Creatinine Estimated GFR (MDRD) Glucose Calcium Magnesium 2.2 Total Bilirubin AST ALT Alkaline Phosphatase Troponin I High Sens Total Protein Albumin Globulin Albumin/Globulin Ratio Lipase HCG, Quant < 0.60 Urine Color Urine Clarity Urine pH Ur Specific [place] Urine Protein Urine Glucose (UA) Urine Ketones Urine Occult Blood Urine Nitrite Urine Bilirubin Urine Urobilinogen Ur Leukocyte Esterase Ur Microscopic Review Urine Culture Comments CSF Color CSF Clarity Xanthrochromic CSF WBC CSF RBC CSF Cell Count Tube # CSF Neutrophils CSF Lymphocytes CSF Monocytes CSF Glucose CSF Total Protein Nasal Adenovirus (PCR) Nasal B. parapertussis DNA (PCR) Nasal Coronavir 229E PCR Nasal Coronavir HKU1 PCR Nasal Coronavir NL63 PCR Nasal Coronavir OC43 PCR Nasal Enterovir/Rhinovir PCR Nasal Influenza B PCR Nasal Influenza A PCR Nasal Parainfluen 1 PCR Nasal Parainfluen 2 PCR Nasal Parainfluen 3 PCR Nasal Parainfluen 4 PCR Nasal RSV (PCR) Nasal B.pertussis DNA PCR Nasal C.pneumoniae (PCR) Chase Human Metapneumo PCR Nasal M.pneumoniae (PCR) Nasal SARS-CoV-2 (PCR) 04/19/21 04/19/21 04/19/21 19:23 19:30 20:06 WBC RBC Hgb Hct MCV MCH MCHC RDW Plt Count MPV Neut # (Auto) Lymph # (Auto) [place] # (Auto) Eos # (Auto) Baso # (Auto) Absolute Nucleated RBC Nucleated RBC % PT INR Sodium Potassium Chloride Carbon Dioxide Anion Gap BUN Creatinine Estimated GFR (MDRD) Glucose Calcium Magnesium Total Bilirubin AST ALT Alkaline Phosphatase Troponin I High Sens Total Protein Albumin Globulin Albumin/Globulin Ratio Lipase HCG, Quant Urine Color YELLOW Urine Clarity CLEAR Urine pH 6.0 Ur Specific [place] <=1.005 Urine Protein NEGATIVE Urine Glucose (UA) NEGATIVE Urine Ketones >=80 H Urine Occult Blood TRACE-INTA Urine Nitrite NEGATIVE Urine Bilirubin NEGATIVE Urine Urobilinogen 0.2 (NORMAL) Ur Leukocyte Esterase NEGATIVE Ur Microscopic Review NOT INDICATED Urine Culture Comments NOT INDICATED CSF Color COLORLESS CSF Clarity HAZY Xanthrochromic ABSENT CSF WBC 979 H* CSF RBC 24 H CSF Cell Count Tube # CSF TUBE# 3 CSF Neutrophils 25 H CSF Lymphocytes 73 CSF Monocytes 2 L CSF Glucose 31 L* CSF Total Protein 65 H Nasal Adenovirus (PCR) NOT DETECTED Nasal B. parapertussis DNA (PCR) NOT DETECTED Nasal Coronavir 229E PCR NOT DETECTED Nasal Coronavir HKU1 PCR NOT DETECTED Nasal Coronavir NL63 PCR NOT DETECTED Nasal Coronavir OC43 PCR NOT DETECTED Nasal Enterovir/Rhinovir PCR NOT DETECTED Nasal Influenza B PCR NOT DETECTED Nasal Influenza A PCR NOT DETECTED Nasal Parainfluen 1 PCR NOT DETECTED Nasal Parainfluen 2 PCR NOT DETECTED Nasal Parainfluen 3 PCR NOT DETECTED Nasal Parainfluen 4 PCR NOT DETECTED Nasal RSV (PCR) NOT DETECTED Nasal B.pertussis DNA PCR NOT DETECTED Nasal C.pneumoniae (PCR) NOT DETECTED [place] Human Metapneumo PCR NOT DETECTED Nasal M.pneumoniae (PCR) NOT DETECTED Nasal SARS-CoV-2 (PCR) NOT DETECTED - Rads (name of study) CT head angio w/wo Radiology: Final report received (No intracranial lesion is found, no intracranial hemorrhage is identified. No vascular malformation or aneurysm is seen.) PD MEDICAL DECISION MAKING - ED course Complexity details: reviewed results, re-evaluated patient, d/w patient ED course: 35-year-old female presents to the emergency department for evaluation of a headache that began nearly 1 week ago. This is her fourth ER visit for similar. She initially reported fevers and chills and headache was likely thought due to be viral syndrome however it is gone unabated. Here in the emergency department she appeared quite uncomfortable and endorse photophobia and noise sensitivity. While here in the emergency department she did mount a very robust fever of 39.2. Blood cultures were pending. Screening labs today do not show any significant leukocytosis but given the unabated headache reported fevers at the onset and now new fever here in the ER a Lumbar puncture was completed with the assistance of anesthesia. Reassuringly it does not show any xanthochromia. Head CT with the angiogram did not show any bruising or bleeding. Unfortunately the cerebrospinal fluid did show a markedly elevated white blood cell count greater than 900 as well as a low glucose of 31. This is concerning for a bacterial meningitis though given the duration of her symptoms this likely represents a viral meningitis. Here in the emergency department she was given 2 g of ceftriaxone as well as vancomycin and 10 mg of Decadron. She was also loaded with 10 mg/kg of acyclovir. She was placed in a private room. I have spoken with Dr. Ronn Goel who agrees to admit the patient to the hospital for further evaluation and treatment of her meningitis. Culture is pending on the cerebrospinal fluid but she will be admitted to the hospital for empiric treatment until bacterial meningitis is ruled out. HSV PCR of the CSF is also pending. Departure - Departure Disposition: [address] [facility] DC/[place] Clinical Impression: Meningitis Discharge Date/Time: 04/19/21 22:08
[2021-04-19] MEDS ORDERED: diphenhydrAMINE INJ 50 MG/ML VIAL IVP STA (17:31)
[2021-04-19 17:48] LABS: INR 1.4 (0.8-1.2); PT - PROTHROMBIN TIME 15.1 secs (9.9-12.6)
--- NOTE | 2021-04-19 18:10 | XRAY Report ---
PROCEDURE: Chest 1 View X-Ray INDICATIONS: Chest pain TECHNIQUE: One view of the chest was acquired. COMPARISON: None FINDINGS: Surgical changes and devices: None. Lungs and pleura: No pleural effusions or pneumothorax. Lungs are clear. Mediastinum: Mediastinal contours appear normal. Heart size is normal. Bones and chest wall: No suspicious bony lesions. Overlying soft tissues appear unremarkable. IMPRESSION: Normal for age, source of current symptoms is not seen. Reviewed by: Lex Elder MD on 04/19/2021 6:08 PM PDT Approved by: Lex Elder MD on 04/19/2021 6:08 PM PDT Station ID: [id number]
[2021-04-19] MEDS ORDERED: IOPAMIDOL-300 100 ML VIAL ONE (18:30)
--- NOTE | 2021-04-19 19:17 | CT Report ---
PROCEDURE: ANGIO HEAD W/WO INDICATIONS: constant hedache CONTRAST: IV CONTRAST: Isovue 300 ml: 80 PO CONTRAST: *NO PO CONTRAST TECHNIQUE: Precontrast 4.5 mm thick angled axial sections acquired from the foramen magnum to the vertex. Afte r the administration of intravenous contrast, 1 mm thick sections acquired through the [place] of [place] is. Postcontrast 4.5 mm thick sections then re-acquired from the foramen magnum to the vertex. 3-di mensional kitpywn-jqqccwjta-btpnlkrrnn (MIP) and/or volume rendering reformats were acquired of the c entral intracranial vasculature. For radiation dose reduction, the following was used: automated ex posure control, adjustment of mA and/or kV according to patient size. COMPARISON: A prior head CT from earlier than today is not available for review.. FINDINGS: Image quality: Excellent. Anterior circulation: Intracranial internal carotid arteries are normal in size and flow. The flow within the paired anterior cerebral arteries is normal and symmetric. The flow within the middle cer ebral arteries is normal and symmetric. The anterior communicating artery is seen. No aneurysms are seen. Posterior circulation: Visualized portions of the vertebral arteries demonstrate normal caliber, and join to form a normal appearing basilar artery. Flow within the posterior cerebral arteries is norm al and symmetric. No aneurysms are seen. CSF spaces: Ventricles are normal in size and shape. Basal cisterns are patent. No extra-axial flu id collections. Brain: No midline shift. No intracranial bleeds or masses. Huang-white matter interface appears int act. Skull and face: Calvarium and facial bones appear intact, without suspicious lesions. Sinuses: Visualized sinuses and mastoids are clear. IMPRESSION: No intracranial lesion is found, no intracranial hemorrhage is identified. No vascular malformation o r aneurysm is seen. Reviewed by: Lex Elder MD on 04/19/2021 7:15 PM PDT Approved by: Lex Elder MD on 04/19/2021 7:15 PM PDT Station ID: [id number]
[2021-04-19] MEDS ORDERED: IOPAMIDOL-300 100 ML VIAL IVP ONE (19:40)
--- NOTE | 2021-04-19 19:43 | ANESTHESIA PROCEDURE NOTE ---
Diagnosis: Need for LP by ER INSPECTOR AIDE. Headache and fever Procedure: Lumbar puncture Consent for Procedure(s) Verified and Reviewed: Yes Height and Weight: Height 5 ft 1 in Weight (kg) 82.1 kg Body Mass Index 34.2 Vital Signs: Temp Pulse Resp BP Pulse Ox 38.3 C H 92 15 102/67 97 04/19/21 19:30 04/19/21 19:30 04/19/21 19:30 04/19/21 19:30 04/19/21 19:30 Allergies No Known Drug Allergies Allergy (Verified 04/19/21 16:42) Location: Emergency Department ASA classification: 2-Mild systemic disease Is this case an emergency?: No (Urgent) Anes. Monitoring and Equipment: Non-invasive BP, Pulse oximetery, Sterile prep and drape Anes. Procedure Start Time: 19:25 Anes. Procedure Stop Time: 19:35 Procedure Notes: DIscussed risks of procedure with patient, including PDPH, infection and bleeding. Pt agreed to continue. Patient placed in sitting position with RN in front for support. Area prep and draped. Sterile technique performed. 20 gauge spinal needle placed in L4-5 interspace in 1 attempt. 4 samples collected and labeled as such. patient tolerated procedure well. Patient placed supine after and told to remain in that position.
[2021-04-19] MEDS ORDERED: HYDROmorphone 1 MG/ML CARPUJECT IVP STA (20:04)
[2021-04-19 20:16] LABS: B. PARAPERTUSSIS- RESP PCR PAN NOT DETECTED; B. PERTUSSIS- RESP PCR PANEL NOT DETECTED; C. PNEUMONIAE- RESP PCR PANEL NOT DETECTED; CORONAVIRUS 229E-RESP PCR NOT DETECTED; CORONAVIRUS HKU1-RESP PCR NOT DETECTED; CORONAVIRUS NL63-RESP PCR NOT DETECTED; CORONAVIRUS OC43-RESP PCR NOT DETECTED; HUMAN METAPNEUMOVIRUS NOT DETECTED; INFLUENZA A- RESP PCR PANEL NOT DETECTED; INFLUENZA B - RESP PCR PANEL NOT DETECTED; M. PNEUMONIAE- RESP PCR PANEL NOT DETECTED; PARAINFLUENZA VIRUS 1 NOT DETECTED; PARAINFLUENZA VIRUS 2 NOT DETECTED; PARAINFLUENZA VIRUS 3 NOT DETECTED; PARAINFLUENZA VIRUS 4 NOT DETECTED; RHINOVIRUS/ENTEROVIRUS NOT DETECTED; RSV- RESP PCR PANEL NOT DETECTED; SARS-CoV-2 -RESP PCR PANEL NOT DETECTED
[2021-04-19 20:27] LABS: CLARITY,CSF HAZY (CLEAR); COLOR,CSF COLORLESS (COLORLESS); CSF TUBE # CSF TUBE# 3; CSF XANTHOCHROMIA ABSENT (ABSENT)
[2021-04-19 20:28] LABS: RED BLOOD CELL,CSF 24 /mm^3 (0-1)
[2021-04-19 20:28] LABS: BILIRUBIN,URINE NEGATIVE (NEGATIVE); GLUCOSE, URINE (UA) NEGATIVE (NEGATIVE); KETONES,URINE (UA) >=80 mg/dL (NEGATIVE); LEUKOCYTE ESTERASE, URINE NEGATIVE (NEGATIVE); NITRITE,URINE NEGATIVE (NEGATIVE); OCCULT BLOOD,URINE TRACE-INTA (NEGATIVE); PROTEIN,URINE NEGATIVE (NEGATIVE); UROBILINOGEN,URINE 0.2 (NORMAL) E.U./dL (NORMAL)
[2021-04-19 20:35] LABS: WHITE BLOOD CELL,CSF 979 /mm^3 (0-5)
[2021-04-19 20:35] LABS: CLARITY,URINE CLEAR (CLEAR)
[2021-04-19 20:36] LABS: TOTAL PROTEIN,CSF 65 mg/dL (15-45)
[2021-04-19 20:44] LABS: CSF - GLUCOSE 31 mg/dL (45-70)
[2021-04-19] MEDS ORDERED: VANCOMYCIN INJ 2 GM in SODIUM CHLORIDE 0.9% 500 ML IV STA (20:48)
[2021-04-19] MEDS ORDERED: cefTRIAXone 2 GM in SODIUM CHLORIDE 0.9% MINIBAG 100 ML IV STA (20:49)
[2021-04-19] MEDS ORDERED: cefTRIAXone 2 GM VIAL ONE (20:55)
[2021-04-19] MEDS ORDERED: SODIUM CHLORIDE 0.9% IV SCH (21:00)
[2021-04-19] MEDS ORDERED: ACYCLOVIR IV SCH (21:00)
[2021-04-19] MEDS ORDERED: oxyCODONE 5 MG TABLET PO PRN (21:00)
[2021-04-19] MEDS ORDERED: ACETAMINOPHEN 325 MG TABLET PO PRN (21:00)
[2021-04-19] MEDS ORDERED: ONDANSETRON 4 MG/2 ML VIAL IVP PRN (21:00)
[2021-04-19 21:01] LABS: LYMPHOCYTES,CSF 73 % (40-80); MONOCYTES,CSF 2 % (15-45); NEUTROPHILS,CSF 25 % (0-6)
[2021-04-19] MEDS ORDERED: POTASSIUM CHLORIDE 20 MEQ TABLET PO STA (21:07)
[2021-04-19] MEDS ORDERED: DEXAMETHASONE 10 MG/ML VIAL IVP STA (21:13)
--- NOTE | 2021-04-19 21:13 | HISTORY & PHYSICAL EXAMINATION ---
Chief Complaint - Chief Complaint Chief Complaint: Headache History of Present Illness - Admitted From Admitted From:: Home - History Obtained From Records Reviewed: Yes History obtained from: Patient, ER Provider, EMR - History of Present Illness HPI Comment/Other: This is a 35-year-old female with a past medical history significant for depression who presents today complaining of headache. She states her symptoms began about 1 week ago and have progressed over the past 3 to 4 days. She for started feeling ill 1 week ago when she developed chills, headache, nausea, vomiting. She has been measuring her temperature but has not had fever. She felt worse over the weekend and finally decided to seek medical attention this past week. She has been to our emergency department twice and diagnosed with a viral syndrome and supportive care was recommended. She went to [facility] emergency department yesterday where she underwent a CT of the head which was reportedly normal. She returns today to our emergency department due to an ongo ing headache. She states she normally feels better when she received treatment in the emergency department with Toradol, etc. Once she goes home, her headache returns and she finds no relief with Tylenol or ibuprofen. She states her headache is normally located all over her head. She has had associated photophobia and has been avoiding bright lights. She also reports neck pain over the past 2 days as well as neck stiffness. Denies any shortness of breath. Reports an occasional cough that is nonproductive. No nasal congestion or sore throat. She believes she has had diarrhea over the past couple days as well. Reports no abdominal pain and denies dysuria, urgency, hematuria. She reports she had Covid infection about 2 months ago when she had loss of smell and taste. She reports no recent sick contacts. Here in the emergency department, she was noted to be febrile with a temperature of 39.2 C. Labs revealed a white count of 11.9 with a left shift. Her sodium was 129 and her potassium was 3.1. She underwent a CTA of the head which was unremarkable. She then underwent a lumbar puncture but unfortunately, there was no opening pressure documented. Initial CSF studies revealed a colorless hazy fluid with 939 WBCs, 24 RBCs, 31 glucose, and 65 total protein. The differe ntial is pending. Respiratory PCR panel is negative. She was given vancomycin, ceftriaxone, acyclovir IV empirically. Given the concern for meningitis, medicine was consulted for admission. History - Past Medical History Cardiovascular: reports: None Respiratory: reports: None Neuro: reports: Headaches Endocrine/Autoimmune: reports: None GI: reports: None CONTRACTS ATTORNEY: reports: None : reports: None HEENT: reports: None Psych: reports: Depression Musculoskeletal: reports: Chronic back pain Derm: reports: None MRSA Hx?: No - Past Surgical History General: reports: Cholecystectomy - Family & Social History Family History: Mother: CAD, Cancer (Breast), Diabetes, Type 2 Family History Comment/Other: She reports her mother has history of breast cancer underwent chemotherapy and radiation. She also history of type 2 diabetes mellitus. She was recent diagnosed with coronary artery disease and underwent a CABG. She also has a history of DVTs and what appears to be a cardiac thrombus. Living arrangement: At home Living Situation: With family Social History Notes: She lives at home with 5 children. She smoked briefly about 16 years ago. She rarely drinks alcohol. She works at [employer]. - POLST Patient has POLST: No Meds/Allgy - Home Medications Home Medications: Ambulatory Orders Medication Instructions Recorded Confirmed Ketorolac [Toradol] 10 mg PO Q6H PRN #30 tablet 04/17/21 04/19/21 Metoclopramide [Reglan] 10 mg PO Q6H PRN #15 tablet 04/17/21 04/19/21 HYDROcod/ACETAM 5/325 [[place] 5/325] 1 tab PO DAILY 04/19/21 04/19/21 Venlafaxine ER [Effexor ER] 1 tab PO DAILY 04/19/21 04/19/21 - Allergies Allergies/Adverse Reactions: Allergies Allergy/AdvReac Type Severity Reaction Status Date / Time No Known Drug Allergies Allergy Verified 04/19/21 16:42 Review of Systems - Constitutional Constitutional: reports: Fatigue, Fever, Chills, Malaise, Poor appetite - Eyes Eyes: reports: Other (Photophobia.). denies: Blurred vision, Dipolpia - Ears, Nose & Throat Ears, Nose & Throat: denies: Nasal discharge, Nasal congestion, Sore throat - Cardiovascular Cariovascular: denies: Chest pain, Exertional dyspnea, Decr. exercise tolerance - Respiratory Respiratory: reports: Cough. denies: Sputum production, SOB at rest, SOB with exertion - Gastrointestinal Gastrointestinal: reports: Diarrhea, Nausea, Vomiting. denies: Abdominal pain, Constipation, Black stools, Bloody stools, Tyson blood emesis - Genitourinary Genitourinary: denies: Dysuria, Frequency, Urgency, Hematuria - Musculoskeletal Musculoskeletal: reports: Stiffness, Limited range of motion - Integumentary Integumentary: denies: Rash - Neurological Neurological: reports: Headache. denies: General weakness, Focal weakness - Hematologic/Lymphatic Hematologic/Lymphatic: denies: Bleeding tendencies - All Other Systems All Other Systems: reports: Reviewed and negative Prior Level of Functionality: She is independent with her ADL's. Exam - Vital Signs Reviewed Vital Signs: Yes Vital Signs: Vital Signs x48h Temp Pulse Resp BP Pulse Ox 04/19/21 20:30 95 16 114/81 H 96 04/19/21 20:00 90 17 108/62 97 04/19/21 19:30 38.3 C H 92 15 102/67 97 04/19/21 18:03 96 20 116/80 96 04/19/21 17:46 39.2 C H 04/19/21 17:32 101 H 15 124/81 H 97 04/19/21 16:42 36.8 C 89 18 128/70 100 - Physical Exam General Appearance: positive: Alert, Mild distress Eyes Bilateral: positive: Normal inspection, PERRL, Conjunctivae nml ENT: positive: ENT inspection nml Neck: positive: Stiff neck. negative: Kernig's sign Respiratory: positive: No respiratory distress. negative: Wheezes, Rales Cardiovascular: positive: Regular rate & rhythm, No murmur. negative: Tachycardia, Systolic murmur Abdomen: positive: Non-tender, No distention. negative: Tenderness, Guarding, Rebound Skin: positive: Warm, Dry Extremities: positive: No pedal edema Neurologic/Psychiatric: positive: Oriented x3, Motor nml. negative: Disoriented to person, Disoriented to place, Disoriented to time Conclusion/Plan - Problem List (1) Meningitis Conclusion/Plan: Her presentation is consistent with meningitis. CSF studies revealed WBC of 979, glucose of 31, and a total protein of 65. She does not appear acutely ill and I suspect this is likely viral meningitis but given the low glucose and elevated WBC, we will treat her empirically for bacterial meningitis until we have the differential and Gram stain back. We we will continue her on vancomycin and ceftriaxone IV. She was given a dose of Decadron in the emergency department and we will continue this until we have a Gram stain back. We will continue her on acyclovir IV. Follow-up HSV PCR. Her respiratory PCR panel was negative for multiple viruses. Tylenol as needed for fever. Follow- up blood cultures. (2) Hyponatremia Conclusion/Plan: This is likely hypovolemic hyponatremia given she has had nausea and vomiting. Her sodium today is 129. We will hydrate her with lactated Ringer's and recheck a sodium in the morning. (3) Hypokalemia Conclusion/Plan: Her sodium today is 3.1 and this is likely due to GI losses. We will give her 40 mEq of potassium and recheck in the morning. We will also check a magnesium. (4) Depression Conclusion/Plan: Stable. Continue home venlafaxine. - Lab Results Lab results reviewed: Yes Fish Bones: 04/19/21 16:50 04/19/21 16:50 - Diagnostic Imaging Results Diagnostic Imaging Results: positive: Final report reviewed Core Measures - Anticipated LOS I expect patient to be DC'd or transferred within 96 hours.: Yes - Issues Hospital Issues and Management Plan: 35-year-old female presents with fever, headache found to have meningitis likely viral although bacterial cannot be ruled out. We will admit for IV vancomycin, ceftriaxone and start her on acyclovir. Follow-up Gram stain, culture, HSV PCR. - DVT/VTE - Prophylaxis VTE/DVT Device ordered at admit?: Yes VTE/DVT Prophylaxis med ordered at admit?: No
[2021-04-19] MEDS: LACTATED RINGERS 1,000 ML IV SCH (23:05)
[2021-04-20] MEDS: SODIUM CHLORIDE FLUSH 0.9% 10 ML SYRINGE IVP SCH ×4 (01:54→23:56)
[2021-04-20] MEDS ORDERED: SODIUM CHLORIDE 0.9% 500 ML IV ONE (04:45)
[2021-04-20] MEDS ORDERED: SODIUM CHLORIDE 0.9% IV SCH (05:00)
[2021-04-20] MEDS ORDERED: ACYCLOVIR IV SCH (05:00)
[2021-04-20] MEDS: VENLAFAXINE ER 75 MG CAPSULE PO SCH (08:13)
[2021-04-20] MEDS: VANCOMYCIN INJ 1 GM, VANCOMYCIN INJ 250 MG in SODIUM CHLORIDE 0.9% 250 ML IV SCH ×3 (08:14→23:53)
[2021-04-20 08:18] LABS: BASOPHILS % (AUTO) 0.3 %; HCT - HEMATOCRIT 35.4 % (37.0-47.0); HGB - HEMOGLOBIN 11.8 g/dL (12.0-16.0); LYMPHOCYTES # (AUTO) 0.6 10^3/uL (1.5-3.5); MEAN CORPUSCULAR HEMOGLOBIN 27.8 pg (27.0-31.0); MEAN CORPUSCULAR HGB CONC 33.3 g/dL (32.0-36.0); MEAN CORPUSCULAR VOLUME 83.5 fL (81.0-99.0); MEAN PLATELET VOLUME 9.2 fL (7.9-10.8); MONOCYTES # (AUTO) 0.3 10^3/uL (0.0-1.0); MONOCYTES % (AUTO) 3.3 %; NEUTROPHILS # (AUTO) 7.9 10^3/uL (1.5-6.6); NEUTROPHILS % (AUTO) 88.2 %; PLT - PLATELET COUNT 367 10^3/uL (130-450); RED BLOOD COUNT 4.24 10^6/uL (4.20-5.40)
[2021-04-20 08:25] LABS: CALCIUM 8.3 mg/dL (8.5-10.3); CREATININE 0.4 mg/dL (0.4-1.0); MAGNESIUM 2.1 mg/dL (1.7-2.8); POTASSIUM 3.7 mmol/L (3.5-5.0)
[2021-04-20] MEDS ORDERED: VANCOMYCIN INJ 1.5 GM in SODIUM CHLORIDE 0.9% 500 ML IV SCH (10:00)
[2021-04-20] MEDS: cefTRIAXone 2 GM in SODIUM CHLORIDE 0.9% MINIBAG 100 ML IV SCH ×2 (10:51→21:03)
--- NOTE | 2021-04-20 11:35 | PHARMACY PROGRESS NOTE ---
- Best Possible Medication History Admit Date and Time: 04/19/21 2100 Processed by: Nursing Medication History completed: Yes Patient Interview: Completed Secondary Source(s): Pharmacy records, Insurance records As the person ultimately responsible for medication therapy, providers are able to order a medication from an existing home medication list in [facility] via the "Reconcile Routine" prior to Confirmation of that medication by user support specialist. Such practice is discouraged except when the physician, in their clinical judgment, deems that a medical need exists for a medication without regard to previous use.
[2021-04-20] MEDS: SODIUM CHLORIDE 0.9% IV SCH ×2 (13:43→21:13)
[2021-04-20] MEDS: ACYCLOVIR IV SCH ×2 (13:43→21:13)
--- NOTE | 2021-04-20 17:40 | PROVIDER PROGRESS NOTE ---
Progress Note April 20, 2021 5:36 PM This patient was admitted with viral meningitis, low-grade headaches, fevers. Last night her temperature was 38.2. When she was seen today she says she feels so much better than she has. Her headache is lessened considerably. And for the first time today she is been able to eat food and have an appetite. She denies blurred vision. Nuchal rigidity. Denying cough, shortness of breath. Temperature is 36.5. Heart rate is 80. Blood pressure 114/70. Respirations 18 and unlabored. She is 98% on room air. 5 feet 1 inches tall and weighs 82 kg. Neck is supple, no nuchal rigidity Lungs have diminished breath sounds at the bases but are otherwise clear and she has no respiratory distress. She appears very comfortable as she is breathless and watches TV. Irregular rate and rhythm. No murmurs rubs or gallops. Abdomen is soft, nontender with hypoactive bowel sounds Legs are large, but no edema. Full range of motion. Neurologically pupils are reactive. No nuchal rigidity. She is using her hands with purpose and fine motor coordination is good if she cuts up her food and brings it to her mouth. She says she is able to get up to go to the bathroom without any assist. Sodium is 133. Potassium 3.7. Random glucose 217. White cell count is 9. She was 11.9 yesterday. Gram stain of the CSF has no organisms seen. Few white cell counts noted. No growth to date. Assessment/plan: 1. Meningitis. Appears to be viral in etiology after analysis of CSF fluid. She is on acyclovir and empiric antibiotic therapy for possible bacterial meningitis. Plan: Await culture results. If there is no bacteria growing, will be stopping the antibiotics. She will be continued on acyclovir. Already significant improvement in 24 hours. 2. Hyponatremia and hypokalemia have resolved with supplementation. We will continue to monitor and check tomorrow 3. Depression disorder. She is continued her home meds and at this time is stable.
[2021-04-20] MEDS: LACTATED RINGERS 1,000 ML IV SCH (21:13)
[2021-04-21] MEDS: ACYCLOVIR IV SCH ×3 (05:15→20:36)
[2021-04-21] MEDS: SODIUM CHLORIDE 0.9% IV SCH ×3 (05:15→20:36)
[2021-04-21 06:40] LABS: BASOPHILS # (AUTO) 0.1 10^3/uL (0.0-0.1); BASOPHILS % (AUTO) 0.8 %; EOSINOPHILS # (AUTO) 0.2 10^3/uL (0.0-0.7); EOSINOPHILS % (AUTO) 2.2 %; HCT - HEMATOCRIT 33.5 % (37.0-47.0); HGB - HEMOGLOBIN 10.8 g/dL (12.0-16.0); LYMPHOCYTES % (AUTO) 30.2 %; MEAN CORPUSCULAR HEMOGLOBIN 27.7 pg (27.0-31.0); MEAN CORPUSCULAR HGB CONC 32.2 g/dL (32.0-36.0); MEAN CORPUSCULAR VOLUME 85.9 fL (81.0-99.0); MEAN PLATELET VOLUME 9.2 fL (7.9-10.8); MONOCYTES # (AUTO) 0.8 10^3/uL (0.0-1.0); MONOCYTES % (AUTO) 8.5 %; NEUTROPHILS # (AUTO) 5.7 10^3/uL (1.5-6.6); NEUTROPHILS % (AUTO) 57.5 %; PLT - PLATELET COUNT 326 10^3/uL (130-450); RED CELL DISTRIBUTION WIDTH 13.5 % (12.0-15.0); WHITE BLOOD COUNT 9.9 x10^3/uL (4.8-10.8)
[2021-04-21 06:47] LABS: CALCIUM 8.3 mg/dL (8.5-10.3); CREATININE 0.5 mg/dL (0.4-1.0); POTASSIUM 3.2 mmol/L (3.5-5.0)
[2021-04-21] MEDS: VENLAFAXINE ER 75 MG CAPSULE PO SCH (08:46)
[2021-04-21] MEDS: VANCOMYCIN INJ 1 GM, VANCOMYCIN INJ 250 MG in SODIUM CHLORIDE 0.9% 250 ML IV SCH ×2 (08:46→16:30)
[2021-04-21] MEDS: SODIUM CHLORIDE FLUSH 0.9% 10 ML SYRINGE IVP SCH ×2 (08:47→16:30)
[2021-04-21] MEDS: cefTRIAXone 2 GM in SODIUM CHLORIDE 0.9% MINIBAG 100 ML IV SCH (10:26)
[2021-04-21 15:58] LABS: VANCOMYCIN,TROUGH 10.7 ug/mL (10.0-20.0)
--- NOTE | 2021-04-21 18:13 | PROVIDER PROGRESS NOTE ---
Progress Note April 21, 2021 6:10 PM She is done very well. She had no fevers. Headaches are almost completely gone away. Blood cultures remain negative. CSF culture has no growth to date. Eating 75 to 100% of her meals. Medications: Tylenol, acyclovir, ceftriaxone, vancomycin, Zofran, venlafaxine. Vital signs reviewed. She remains completely afebrile since her stay. Temperature right now is 36.7. Heart rate is 88. Blood pressure 107/70. She has been with a low blood pressure throughout her entire stay. Respiration is 16. 98% on room air. On exam she is 5 foot 1 inches tall and weighs 82 kg. No nuchal rigidity Lungs are completely clear Regular rate and rhythm without a murmur Abdomen is soft, nontender Extremities are without edema Alert and oriented x4. No focal deficits. Ambulating in the room. Sodium 140. Potassium 3.2. BUN and creatinine normal. White cell count 9.9. Hemoglobin 10.8. She started at 12.8. Vancomycin trough 10.7 Assessment/plan: 1. Viral meningitis. Cultures are negative for bacteria. I will stop IV antibiotics. Watch her overnight to see if she has any fevers. If there are no fevers anticipate discharge tomorrow with oral acyclovir. 2. Hyponatremia and hypokalemia have partially resolved. We will continue to supplement potassium and recheck tomorrow.
[2021-04-21] MEDS: POTASSIUM CHLORIDE 20 MEQ TABLET PO SCH (20:36)
[2021-04-22] MEDS ORDERED: VANCOMYCIN INJ 1 GM, VANCOMYCIN INJ 500 MG in SODIUM CHLORIDE 0.9% 500 ML IV SCH ×3
[2021-04-22] MEDS: SODIUM CHLORIDE FLUSH 0.9% 10 ML SYRINGE IVP SCH ×2 (00:10→07:33)
[2021-04-22] MEDS: SODIUM CHLORIDE FLUSH 0.9% 10 ML SYRINGE IVP PRN ×3 (05:24→13:36)
[2021-04-22] MEDS: SODIUM CHLORIDE 0.9% IV SCH ×2 (05:29→13:33)
[2021-04-22] MEDS: ACYCLOVIR IV SCH ×2 (05:29→13:33)
[2021-04-22 05:57] LABS: BASOPHILS # (AUTO) 0.1 10^3/uL (0.0-0.1); BASOPHILS % (AUTO) 0.9 %; EOSINOPHILS # (AUTO) 0.4 10^3/uL (0.0-0.7); EOSINOPHILS % (AUTO) 3.9 %; HCT - HEMATOCRIT 35.2 % (37.0-47.0); HGB - HEMOGLOBIN 11.6 g/dL (12.0-16.0); LYMPHOCYTES % (AUTO) 29.5 %; MEAN CORPUSCULAR HEMOGLOBIN 28.2 pg (27.0-31.0); MEAN CORPUSCULAR VOLUME 85.6 fL (81.0-99.0); MEAN PLATELET VOLUME 8.9 fL (7.9-10.8); MONOCYTES # (AUTO) 0.9 10^3/uL (0.0-1.0); MONOCYTES % (AUTO) 8.7 %; NEUTROPHILS # (AUTO) 5.6 10^3/uL (1.5-6.6); NEUTROPHILS % (AUTO) 56.3 %; PLT - PLATELET COUNT 349 10^3/uL (130-450); RED BLOOD COUNT 4.11 10^6/uL (4.20-5.40); RED CELL DISTRIBUTION WIDTH 13.3 % (12.0-15.0)
[2021-04-22 06:04] LABS: CREATININE 0.5 mg/dL (0.4-1.0); MAGNESIUM 1.8 mg/dL (1.7-2.8)
[2021-04-22 06:27] LABS: POTASSIUM 3.4 mmol/L (3.5-5.0)
[2021-04-22] MEDS: POTASSIUM CHLORIDE 20 MEQ TABLET PO SCH (07:41)
[2021-04-22] MEDS: VENLAFAXINE ER 75 MG CAPSULE PO SCH ×2 (07:41→07:44)
[2021-04-22 16:20] VITALS: BP 121/82
[2021-04-22 17:20] LABS: HIV AG/AB 4TH GEN NON-REACTIVE (NON-REACTIVE)
--- NOTE | 2021-04-22 17:52 | Discharge Plan ---
Discharge Plan Problem Reviewed?: Yes Disposition: Home, Self Care Condition: Fair Prescriptions: Acyclovir 800 mg PO 5XD #50 tablet Potassium Chloride 20 meq PO DAILY #30 tab Diet: Regular Activity Restrictions: No Restrictions Shower Restrictions: No Driving Restrictions: No Instruction Topics: Acyclovir tablets or capsules Health Concerns: You presented to our hospital because you have been having headaches and already been seen at another hospital. These were the worst headaches you have ever had in your life. We found you to have aseptic meningitis and a lumbar puncture. Aseptic meningitis is usually transmitted as a viral meningitis. Herpes simplex virus is a very dangerous meningitis to half. It is life-threatening and associated with severe, severe illness. You responded very quickly to IV fluids, antiviral therapy, and antibiotic therapy. The antibiotic therapy was just in case you had bacterial meningitis. Your cerebral spinal fluid cultures came back negative for bacteria and as such antibiotics were stopped. You did well without antibiotics for 2 days. The herpes simplex culture will not be back for a few days and you really wanted to go home. Using my judgment, I felt that you were not sick with herpes simplex virus since you responded so quickly and you stated you were completely back to normal. No headache. Eating well. Walking in the room. If you do have herpes simplex virus you were supposed to be treated for 10 days of IV antiviral therapy. Since you are going home, I will be giving you acyclovir 5 times a day for total of 10 days. Plan of Treatment: 1. Complete 10 more days of antiviral therapy with acyclovir 5 times a day. 2. Please see your primary care provider, Bonilla West, in the next 1 to 2 weeks for follow-up. 3. You have requested a note for work. I will certify that you were in the hospital from October 20 to today. He stated that you do not want any work restrictions. Care Goals: To resume normal activities, normal employment, and be pain-free from the headache you have had for days Assessment: And relative who is in the room with her understand care goals and will follow through No Smoking: If you smoke, Please STOP! Call for help. Follow-up with: Bonilla West MD [Primary Care Provider] -
--- NOTE | 2021-04-22 17:59 | DISCHARGE SUMMARY ---
"Discharge Summary Admit Date: 04/19/21 Discharge Date: 04/22/21 Discharging Provider: Michaela Bailey MD Primary Care Provider: Bonilla West MD [facility] Condition at Discharge: Fair Discharge Disposition: 01 Home, Self Care - DIAGNOSES Discharge Diagnoses with Status of Each Condition: 1. Aseptic meningitis 2. Hyponatremia 3. Hypokalemia 4. Depression - HPI History of Present Illness: This is a 35-year-old female with a past medical history significant for depression who presents today complaining of headache. She states her symptoms began about 1 week ago and have progressed over the past 3 to 4 days. She for started feeling ill 1 week ago when she developed chills, headache, nausea, vomiting. She has been measuring her temperature but has not had fever. She felt worse over the weekend and finally decided to seek medical attention this past week. She has been to our emergency department twice and diagnosed with a viral syndrome and supportive care was recommended. She went to [facility] emergency department yesterday where she underwent a CT of the head which was reportedly normal. She returns today to our emergency department due to an ongoing headache. She states she normally feels better when she received treatment in the emergency department with Toradol, etc. Once she goes home, her headache returns and she finds no relief with Tylenol or ibuprofen. She states her headache is normally located all over her head. She has had associated photophobia and has been avoiding bright lights. She also reports neck pain over the past 2 days as well as neck stiffness. Denies any shortness of breath. Reports an occasional cough that is nonproductive. No nasal congestion or sore throat. She believes she has had diarrhea over the past couple days as well. Reports no abdominal pain and denies dysuria, urgency, hematuria. She reports she had Covid infection about 2 months ago when she had loss of smell and taste. She reports no recent sick contacts. Here in the emergency department, she was noted to be febrile with a temperature of 39.2 C. Labs revealed a white count of 11.9 with a left shift. Her sodium was 129 and her potassium was 3.1. She underwent a CTA of the head which was unremarkable. She then underwent a lumbar puncture but unfortunately, there was no opening pressure documented. Initial CSF studies revealed a colorless hazy fluid with 939 WBCs, 24 RBCs, 31 glucose, and 65 total protein. The differential is pending. Respiratory PCR panel is negative. She was given vancomycin, ceftriaxone, acyclovir IV empirically. Given the concern for meningitis, medicine was consulted for admission. - Past Medical History Cardiovascular: reports: None Respiratory: reports: None Neuro: reports: Headaches Endocrine/Autoimmune: reports: None GI: reports: None HOME MAKER: reports: None : reports: None HEENT: reports: None Psych: reports: Depression Musculoskeletal: reports: Chronic back pain Derm: reports: None MRSA Hx?: No - Past Surgical History General: reports: Cholecystectomy - CONSULTS | PROCEDURES Procedures: Lumbar puncture. CSF was hazy, without color. 979 white cells. 24 red cells. 25% neutrophils, 73% lymphocytes. 2% monocytes. Glucose was low at 31. Protein was high at 65. On Gram stain no organisms were seen. Few white cells were noted. There was no growth after 48 hours. Blood cultures were negative after 2 days. Chest x-ray was normal for age, no acute process. Head CT head no intracranial lesion. No hemorrhage. No vascular malformation or aneurysm. - HOSPITAL COURSE Hospital Course: She was started on empiric antibiotic therapy for possible bacterial meningitis. However CSF indicated aseptic meningitis or viral meningitis. HIV status is negative. The patient did have specimen sent for HSV. However it is a send out lab and will not return to us for another 2 to 3 days according to the labour market economist today. Within 24 hours she said the headache was gone. She was able to eat no rmally and she had not done that in days. Since CSF bacterial cultures came back negative, antibiotics were stopped. Her last dose was 11 the morning on April 21. Over the next 24 hours she had no fevers. No recurrence of headache. On the day of discharge this patient was eating normally, ambulating, afebrile. Headache free for close to 2 days if not 3 days. She wanted to go home and felt normal enough to go home. I did explain to her that there was a low possibility that she would have HSV which would require 10 days of IV antiviral therapy. But we both agree that she was not as ill as I would think HSV would present. As such she was sent home on 10 days of acyclovir by my cautionary thought process. During her stay she did have a low potassium which was supplemented. I am send ing her home on potassium supplementation. I am asking that her primary care provider check potassium level in the next few days. Hyponatremia resolved. At discharge temperature was 36.5. Heart rate 96. Blood pressure 121/82. Respirations 18. 97% on room air. She is 5 feet 1 inches tall and weighs 82 kg. A pleasant alert white female who looks her stated age. Neck was supple with no meningismus no adenopathy. Pupils were equal round and reactive. No facial asymmetry. Speech was normal. Lungs were clear to auscultation and percussion. PMI is normally placed with a regular rate and rhythm without a murmur. Abdomen was soft, obese, nontender without organomegaly. Extremities were warm, no clubbing cyanosis or edema. She was ambulating in the room without any standby assist. Able to go to the bathroom, feed herself, dress herself. Greater than 30 minutes was spent coordinating discharge. - ALLERGIES Allergies/Adverse Reactions: Allergies Allergy/AdvReac Type Severity Reaction Status Date / Time No Known Drug Allergies Allergy Verified 04/19/21 16:42 - MEDICATIONS Home Medications: Ambulatory Orders Medication Instructions Recorded Confirmed Ketorolac [Toradol] 10 mg PO Q6H PRN #30 tablet 04/17/21 04/19/21 Metoclopramide [Reglan] 10 mg PO Q6H PRN #15 tablet 04/17/21 04/19/21 HYDROcod/ACETAM 5/325 [[place] 5/325] 1 tab PO DAILY 04/19/21 04/19/21 Venlafaxine ER [Effexor ER] 1 tab PO DAILY 04/19/21 04/19/21 Acyclovir 800 mg PO 5XD #50 tablet 04/22/21 Potassium Chloride 20 meq PO DAILY #30 tab 04/22/21 - LABS Result Diagrams: 04/22/21 05:38 04/22/21 05:38"
[2021-04-23 16:45] LABS: HIV AG/AB 4TH GEN NON-REACTIVE (NON-REACTIVE)
[2021-04-24 02:17] LABS: HSV 1 DNA NOT DETECTED; HSV 2 DNA NOT DETECTED; SOURCE CEREBROSPINAL FLUID
== END 2021-04-22 18:15 | disposition home or self-care (01) | DRG 98 ==
LOC: ED 16:32 → MS2 21:00
PROVIDERS: ADMIT Internal Medicine; ATTEND Specialist
DX: G03.0 Nonpyogenic meningitis (principal); E87.1 Hypo-osmolality and hyponatremia; E87.6 Hypokalemia; F32.9 Major depressive disorder, single episode, unspecified; Z87.891 Personal history of nicotine dependence
CPT/HCPCS: 0202U; 36415; 62270; 70496; 71045; 80048; 80053; 80202; 81003; 82945; 83690; 83735; 84157; 84484; 84702; 85025; 85610; 87040; 87070; 87205; 87389; 87529; 89051; 93005; 96361; 96374; 96375; 99285; A9270; J0133; J1170; J1200; J3370; J7120; Q9967; 81001; 87086

== ENCOUNTER 2022-07-09 08:00 | Outpatient (CLI) | payer MEDICAID ==
--- NOTE | 2022-07-10 10:32 | XRAY Report ---
PROCEDURE: Ankle 3 View RT INDICATIONS: R ANKLE PX TECHNIQUE: 3 views of the ankle were acquired. COMPARISON: None FINDINGS: Bones: No fractures or dislocations. Ankle mortise is normally aligned. No suspicious bony lesions . Soft tissues: No tibiotalar joint effusion. Achilles tendon appears normal. IMPRESSION: No acute radiographic abnormality. If there is high concern for occult injury, consider repeat radiography or cross-sectional imaging. Reviewed by: Kar Mancilla MD on 07/10/2022 10:31 AM PDT Approved by: Kar Mancilla MD on 07/10/2022 10:31 AM PDT Station ID: [id number]
== END 2022-07-09 23:59 | disposition home or self-care (01) ==
LOC: DI.N 08:00
PROVIDERS: ATTEND Family Medicine
DX: M25.571 Pain in right ankle and joints of right foot (principal)

== ENCOUNTER 2023-03-22 15:02 | Outpatient (CLI) | payer MEDICAID ==
--- NOTE | 2023-03-22 20:00 | Ultrasound Report ---
PROCEDURE: OB 14+ Weeks INDICATIONS: SUPERVISION OF OUTSIDE/PRIOR DATING DATA: Last menstrual period (LMP): 03/22/2023. LMP-based estimated date of delivery (LATRELL): 06/08/2023. First dating scan (date and location): 03/22/2023. Estimated date of delivery (LATRELL) from first dating scan: 06/02/2023. The below data below was generated using the ultrasound LATRELL of 06/02/2023 TECHNIQUE: Real-time scanning was performed of the fetus, with image documentation and biometric measurements. COMPARISON: None. FINDINGS: General: A single living intrauterine gestation is present. Presentation: Transverse Placenta: Placental position is posterior, without previa. Amniotic fluid index: 23.8 cm, 96.3% tile for gestational age. heart rate: 153 beats per minute. Maternal cervical canal: 3.8 cm long; normal length is 2.5 cm or more. biometrics: Biparietal diameter: 7.5 cm. 30 weeks 1 day Head circumference: 28.1 cm. 30 weeks 5 days Abdominal circumference: 26.5 cm. 30 weeks 5 days Femur length: 5.1 cm. 27 weeks 3 days Estimated weight and percentile: 1423 g. 65.8 percentile Measurement variability for biometric dating: +/- 10 days from 12-20 weeks gestation, +/- 2 weeks fro m 20-30 weeks gestation, +/- 3 weeks for 30 weeks gestation or later. Anatomic survey: Neuro: Not evaluated Nuchal skin fold: Not evaluated. Face: Not evaluated. Spine: Not evaluated. Heart: Not evaluated. Diaphragm: Diaphragm is intact. Stomach: Left-sided stomach is present. Kidneys: No hydronephrosis. Normal is less than 5 mm in 2nd trimester, less than 7 mm in 3rd trimester. Cord: Not evaluated. Bladder: Normal in size. Extremities: Not evaluated. IMPRESSION: 1. Amniotic fluid index is 23.8 cm consistent with oligohydramnios. 2. Ultrasound estimated date of delivery is 06/02/2023 with a gestational age of 29 weeks 5 days. Reviewed by: Nakul Menon on 03/22/2023 6:58 PM [email or web address] Approved by: Nakul Menon on 03/22/2023 6:58 PM DIXON Station ID: [id number]
== END 2023-03-22 15:03 | disposition home or self-care (01) ==
LOC: DI 15:02
PROVIDERS: ATTEND Obstetrics & Gynecology
DX: O09.523 Supervision of elderly multigravida, third trimester (principal); Z3A.29 29 weeks gestation of pregnancy